=== PATIENT | female | born 1995 | race Asian ===

== ENCOUNTER 2016-10-02 19:52 | Emergency (ER) | payer OTHER ==
[~2016-10-02] VITALS: Ht 160 cm; Wt 84.4 kg
== END 2016-10-02 20:30 | disposition home or self-care (01) ==
LOC: ED 19:52
DX: K08.89 Other specified disorders of teeth and supporting structures (principal)
CPT/HCPCS: 99281

== ENCOUNTER 2017-08-26 13:09 | Emergency (ER) | payer BC ==
[~2017-08-26] VITALS: Ht 160 cm; Wt 74.8 kg
[2017-08-26 13:15] VITALS: TEMP 98.2
[2017-08-26 13:40] LABS: PLATELET COUNT 422 K/uL (152-353)
[2017-08-26 14:00] VITALS: BP 138/72
== END 2017-08-26 14:18 | disposition home or self-care (01) ==
LOC: ED 13:09
DX: J02.0 Streptococcal pharyngitis (principal)
CPT/HCPCS: 85027; 87880; 96372; 99283; J0561